=== PATIENT | female | born 1975 | race Caucasian/White ===

== ENCOUNTER → 2020-06-29 17:31 | Outpatient (CLI) | payer OTHER, SELFPAY ==
--- NOTE | ~2020-06-29 | XR_ITS ---
EXAMINATION: XR chest 2V DATE: 06/29/2020 18:16 INDICATION: Pneumonia TECHNIQUE: PA and lateral views of the chest were obtained. COMPARISON: None FINDINGS: Single thin band of linear discoid atelectasis at the lingula. No other airspace opacities, pulmonary edema, pleural effusion or pneumothorax. The cardiomediastinal silhouette is normal. Minimal thoraci c spondylosis. Cholecystectomy clips in the right upper quadrant. IMPRESSION: 1. Minimal lingular discoid atelectasis. No other acute cardiopulmonary disease. Reviewed, dictated and finalized at location A. RENTAL SERVICE ATTENDANT IMPRESSION: 1. Minimal lingular discoid atelectasis. No other acute cardiopulmonary disease .
== END ==
PROVIDERS: PCP Family Medicine; Visit Provider Physician Assistant
DX: J18.9 Pneumonia, unspecified organism (principal)
CPT/HCPCS: 71046

== ENCOUNTER → 2021-08-20 09:15 | Outpatient (CLI) | payer OTHER, SELFPAY ==
--- NOTE | ~2021-08-20 | XR_ITS ---
XR shoulder LT min 2V DATE: 08/20/2021 09:51 INDICATION: Left shoulder pain TECHNIQUE: 4 views COMPARISON: None FINDINGS: A left cervical rib is noted. No fracture or dislocation, periosteal reaction or bone destruction or abnormal soft tissue calcifica tion of the left shoulder. IMPRESSION: Left cervical rib Reviewed, dictated and finalized at location A. ER MACHINE OPERATOR IMPRESSION: Left cervical rib
--- NOTE | ~2021-08-20 | XR_ITS ---
XR knee RT min 4V DATE: 08/20/2021 09:51 INDICATION: Right knee pain TECHNIQUE: [place], [place], PA and lateral views COMPARISON: None FINDINGS: There is mild patellar enthesopathy at the quadriceps tendon insertion site. No fracture or dislocation or joint effusion, periosteal reaction or bone destruction, radiopaque intra-articular l oose body or chondrocalcinosis. IMPRESSION: Mild patellar enthesopathy Reviewed, dictated and finalized at location A. ACE TENDER IMPRESSION: Mild patellar enthesopathy
== END ==
PROVIDERS: PCP Physician Assistant; Visit Provider Physician Assistant
DX: M25.519 Pain in unspecified shoulder (principal); M25.569 Pain in unspecified knee; M76.51 Patellar tendinitis, right knee; Q76.5 Cervical rib
CPT/HCPCS: 73030; 73564

== ENCOUNTER 2021-12-18 10:35 | Emergency (ER) | payer OTHER, SELFPAY ==
[2021-12-18 10:48] VITALS: BP 118/74; PULSE 83; RESP 18; TEMP 36.7; O2SAT 99
--- NOTE | 2021-12-18 11:45 | ED.GENADULT ---
HPI - General Adult General Chief complaint: Skin/Abscess/Foreign Body Stated complaint: Lt Inside Thigh History of Present Illness HPI narrative: Patient is a 46-year-old female who presents to the [facility] via POV for evaluation of skin problem on left inner thigh that began yesterday. Additionally, she reports the area is tender, red, warm, and swelling. She denies using OTC meds for symptoms. Related Data Allergies Allergy/AdvReac Type Severity Reaction Status Date / Time No Known Allergies Allergy Verified 11/19/21 11:50 Review of Systems Review of Systems: Denies injury. Pertinent negatives fever, chills, sweats, malaise, poor p.o. intake, change in appetite, headache, LOC, dizziness, streaking, drainage, numbness, tingling, loss of sensation, foreign body sensation, deformity, sob, chest pain, and heart palpitations/murmurs. PMFSH Past Medical History Medical History Anxiety Gestational diabetes HLD (hyperlipidemia) Hypertension Psoriasis Type 2 diabetes mellitus Surgical History Surgical History H/O section History of cholecystectomy History of tonsillectomy Family History Family History Father Diabetes mellitus Skin cancer Mother High cholesterol Grandparent Carcinoma of colon Social History Social History Smoking status: Never smoker Alcohol intake: current Alcohol use details: rare Substance use: never Substance use type: does not use Gender identity (if verbalized by the patient): Female Spiritual care concerns: No Agree to blood products: Yes Exam Narrative: GENERAL: Well-appearing, well-nourished, and in no acute distress. HEAD: Normocephalic, atraumatic. No facial swelling appreciated. EYES: PERRLA and EOMI. No evidence of erythema, swelling, or drainage. ENT: Nares clear, no rhinorrhea or epistaxis.Mucous membranes moist and pink. Uvula is midline without erythema and swelling. No evidence of obstruction, petechial rash, cobblestoning, lesions, ulcers, erythema, swelling, exudates, peritonsillar abscess, tenting, or drooling. Breath odor and voice normal. NECK: Supple. No Lymphadenopathy or nuchal rigidity appreciated. CHEST: Bilateral lung lundberg are clear to auscultation. No respiratory distress. No evidence of cough or pleuritic cp upon examination. HEART: Regular rate and rhythm. No murmur, gallop, or rub heard. EXTREMITIES: Normal range of motion. No edema. SKIN: Warm, dry. Mild cellulitis noted to medial aspect of left thigh otherwise normal. NEURO: No focal deficits. Alert and oriented x3. SPECIAL OBSERVATIONS: Smiling. Laughing. Course Course Level of Care: Express Care Visit Vital Signs Vital signs: Vital Signs Temperature 98.1 F 12/18/21 10:48 Pulse Rate 83 12/18/21 10:48 Respiratory Rate 18 12/18/21 10:48 Blood Pressure 118/74 12/18/21 10:48 Pulse Oximetry 99 12/18/21 10:48 Oxygen Delivery Room Air 12/18/21 10:48 Temperature 98.1 F 12/18/21 10:48 Pulse Rate 83 12/18/21 10:48 Respiratory Rate 18 12/18/21 10:48 Blood Pressure 118/74 12/18/21 10:48 Pulse Oximetry 99 12/18/21 10:48 Oxygen Delivery Room Air 12/18/21 10:48 reviewed Medical Decision Making Differential Diagnosis Differential Diagnosis: Contact/allergic dermatitis, atopic dermatitis, psoriasis, cellulitis, tinea infection, parasite infection, shingles Medical Records Medical records reviewed: Yes I reviewed the external patient's medical records. Vital Signs Vital Signs: Vital Signs Temperature 98.1 F 12/18/21 10:48 Pulse Rate 83 12/18/21 10:48 Respiratory Rate 18 12/18/21 10:48 Blood Pressure 118/74 12/18/21 10:48 Pulse Oximetry 99 12/18/21 10:48 Oxygen Deli
== END 2021-12-18 11:48 | disposition home or self-care (01) ==
PROVIDERS: Emergency Provider Nurse Practitioner Family; PCP Family Medicine
DX: L03.116 Cellulitis of left lower limb (principal); E78.5 Hyperlipidemia, unspecified; I10 Essential (primary) hypertension; E11.9 Type 2 diabetes mellitus without complications; F41.9 Anxiety disorder, unspecified
CPT/HCPCS: 99213; G0463

== ENCOUNTER 2022-03-30 00:27 | Day surgery (SDC) | payer OTHER, SELFPAY ==
[2022-03-16 08:41] VITALS: BMI 36.1
[2022-03-30 08:07] VITALS: BP 129/84; PULSE 106; RESP 20; TEMP 36; O2SAT 98; BMI 36.2
[2022-03-30] MEDS: LACTATED RINGERS 1,000 ML 150 ML IV CONT (08:18)
[2022-03-30 08:20] LABS: Glucose Point of Care 146 mg/dl (65-105)
--- NOTE | 2022-03-30 08:59 | PM.HPGS ---
History of Present Illness History of Present Illness Consent: Risks, benefits, and alternatives have been discussed and questions answered. Patient agrees to proceed with procedure. Chief complaint: melena Narrative: Samantha Heath is a 46 year old female here for colonoscopy, had self-limited hematochezia, last colonoscopy 4 years ago Review of Systems Constitutional: Constitutional: Denies headache(s) and Denies weakness Eyes: Eyes: Denies blurry vision ENT: Reports Normal hearing present, Denies headache(s) and Denies neck pain Cardiovascular: Cardiovascular: Denies chest pain and Denies dyspnea Respiratory: Respiratory: Denies dyspnea Gastrointestinal: Gastrointestinal: Reports no additional gastrointestinal complaints Genitourinary: Genitourinary: Denies dysuria Musculoskeletal: Musculoskeletal: Denies neck pain Integumentary/Breasts: Skin/Breast: Denies dry skin Neurologic: Reports Normal hearing present, Denies headache(s) and Denies weakness Psychiatric: Psychiatric: Denies anxiety Endocrine: Endocrine: Denies change in body appearance Hematologic/Lymphatic: Hematologic/Lymphatic: Denies easy bleeding Allergic/Immunologic: Allergic/Immunologic: Denies urticaria PMFSH Past Medical History Medical History Allergies Anxiety Blood per rectum Diabetes Gestational diabetes Hematochezia HLD (hyperlipidemia) Hypertension Obesity Psoriasis Type 2 diabetes mellitus Surgical History Surgical History H/O section x2 History of cholecystectomy History of endometrial ablation History of tonsillectomy Family History Family History Father Diabetes mellitus Skin cancer Alcoholism Depression Mother High cholesterol Hypertension Depression Grandparent Carcinoma of colon Alcoholism Cancer Other Alcoholism Heart disease Son Depression Daughter Depression Sibling Depression Social History Social History Smoking status: Never smoker Alcohol intake: current Alcohol use details: rare Substance use: never Substance use type: does not use Living arrangements: other Additional living arrangements comments: With sp 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 Gender identity (if verbalized by the patient): Female Spiritual care concerns: No Agree to blood products: Yes Meds Home Medications and Allergies Home Medications Medication Instructions Recorded Confirmed Type lancets (Accu-Chek Fastclix Lancet #100 ea 04/06/20 03/16/22 Rx Drum) pen needle, diabetic 32 gauge x #100 ea 07/09/21 03/16/22 Rx 5/32 (BD Ultra-Fine Glory Pen Needle) venlafaxine 75 mg capsule,extended See Rx Instructions .Route 07/25/21 03/16/22 Rx release 24 hr .COMPLEX #90 caps insulin glargine 100 unit/mL (3 25 unit (0.25 mL) subcut DAILY #15 08/08/21 03/16/22 Rx mL) subcutaneous pen (Basaglar mL KwikPen U-100 Insulin) blood sugar diagnostic (Accu-Chek #100 ea 08/24/21 03/16/22 Rx Guide test strips) lisinopril 5 mg tablet 5 mg PO DAILY #30 tabs 02/11/22 03/16/22 Rx simvastatin 20 mg tablet 20 mg PO DAILY #90 tabs 03/06/22 03/16/22 Rx diclofenac sodium 75 mg 75 mg PO BID #60 tabs 03/16/22 03/30/22 Rx tablet,delayed release Allergies Allergy/AdvReac Type Severity Reaction Status Date / Time No Known Allergies Allergy Verified 03/30/22 08:06 Vital Signs Vital Signs - 24 hr 03/30/22 08:07 Temperature 96.8 F L Pulse Rate 106 H Respiratory Rate 20 Blood Pressure 129/84 Pulse Oximetry 98 Oxygen Delivery Room Air Exam Const: General: comfortable and no acute distress HENMT: Face/Nose/Sinus: Normal nares present Eyes: G
--- NOTE | 2022-03-30 09:09 | WPDANESEPPF ---
Anes - Initial Pre Proc Eval Procedure: Operation Date: 03/30/22 09:15 Proposed Procedures p Colonoscopy - Hernando Porras MD Date/Time: 03/30/22 09:09 Surgeon: Hernando Porras MD Pre Op Diagnosis: melena Patient Data Age: 46 Gender: F Height: 1.6 m Weight: 92.8 kg Last Vital Signs Temp 96.8 F L 03/30/22 08:07 Pulse 106 H 03/30/22 08:07 Resp 20 03/30/22 08:07 BP 129/84 03/30/22 08:07 Pulse Ox 98 03/30/22 08:07 O2 Del Method Room Air 03/30/22 08:07 Allergies Allergy/AdvReac Type Severity Reaction Status Date / Time No Known Allergies Allergy Verified 03/30/22 08:06 Home Medications Medication Instructions Recorded Confirmed Type lancets (Accu-Chek Fastclix Lancet #100 ea 04/06/20 03/16/22 Rx Drum) pen needle, diabetic 32 gauge x #100 ea 07/09/21 03/16/22 Rx 5/32 (BD Ultra-Fine Glory Pen Needle) venlafaxine 75 mg capsule,extended See Rx Instructions .Route 07/25/21 03/16/22 Rx release 24 hr .COMPLEX #90 caps insulin glargine 100 unit/mL (3 25 unit (0.25 mL) subcut DAILY #15 08/08/21 03/16/22 Rx mL) subcutaneous pen (Basaglar mL KwikPen U-100 Insulin) blood sugar diagnostic (Accu-Chek #100 ea 08/24/21 03/16/22 Rx Guide test strips) lisinopril 5 mg tablet 5 mg PO DAILY #30 tabs 02/11/22 03/16/22 Rx simvastatin 20 mg tablet 20 mg PO DAILY #90 tabs 03/06/22 03/16/22 Rx diclofenac sodium 75 mg 75 mg PO BID #60 tabs 03/16/22 03/30/22 Rx tablet,delayed release Laboratory Tests 03/30/22 08:15 POC Capillary Glucose 146 mg/dl H mg/dl (65-105) Patient hx anesthesia problems: none Family hx anesthesia problems: none Results Review: All pre-operative results and documents have been reviewed as part of the pre-operative evaluation. PMFSH Past Medical History Medical History Allergies Anxiety Blood per rectum Diabetes Gestational diabetes Hematochezia HLD (hyperlipidemia) Hypertension Obesity Psoriasis Type 2 diabetes mellitus Surgical History Surgical History H/O section x2 History of cholecystectomy History of endometrial ablation History of tonsillectomy Family History Family History Father Diabetes mellitus Skin cancer Alcoholism Depression Mother High cholesterol Hypertension Depression Grandparent Carcinoma of colon Alcoholism Cancer Other Alcoholism Heart disease Son Depression Daughter Depression Sibling Depression Social History Social History Smoking status: Never smoker Alcohol intake: current Alcohol use details: rare Substance use: never Substance use type: does not use Living arrangements: other Additional living arrangements comments: With sp 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 Gender identity (if verbalized by the patient): Female Spiritual care concerns: No Agree to blood products: Yes Anes - Eval Final PreProcedure Day of Procedure 03/30/22 09:09 Patient weight: obese Heart: regular rate and rhythm Lungs: clear to auscultation Airway: Mallampati scale class II Neurological: alert and oriented Last oral intake: >/= 8 hours ASA classification: III Emergent: no Anesthetic plan: proceed Anesthesia type and monitoring: general GIVS and standard monitoring Results Review: All pre-operative results and documents have been reviewed as part of the pre-operative evaluation. Informed Consent: The patient's anesthetic plan and its attendant risks and benefits were discussed with the patient/family/POA. Questions were solicited and answers provided to the satisfaction of the patient/family/POA.
[2022-03-30 09:27] VITALS: BP 113/72; PULSE 84; RESP 13; O2SAT 97
[2022-03-30 09:37] VITALS: BP 123/77; PULSE 80; RESP 12; O2SAT 98
[2022-03-30 09:42] LABS: Glucose Point of Care 120 mg/dl (65-105)
[2022-03-30 09:47] VITALS: BP 103/69; PULSE 87; RESP 18; O2SAT 98
== END 2022-03-30 09:57 | disposition home or self-care (01) ==
PROVIDERS: PCP Family Medicine; Visit Provider Internal Medicine Gastroenterology
PROC: 0DJD8ZZ Inspection of Lower Intestinal Tract, Via Natural or Artificial Opening Endoscopic (ICD-10-PCS; CPT 45378; principal; 2022-03-30 09:15)
DX: K92.1 Melena (principal); K64.8 Other hemorrhoids; E11.9 Type 2 diabetes mellitus without complications; E78.5 Hyperlipidemia, unspecified; I10 Essential (primary) hypertension; E66.9 Obesity, unspecified; Z68.36 Body mass index [BMI] 36.0-36.9, adult
CPT/HCPCS: 45378; 82948; J2704; J7120

== ENCOUNTER 2023-09-06 03:25 | Day surgery (SDC) | payer OTHER, SELFPAY ==
[2023-08-28 15:37] VITALS: BMI 29.9
--- NOTE | 2023-09-04 10:08 | SUR.PREOP ---
Patient called regarding upcoming procedure. Reviewed preop instructions, appointment times, procedure prep.
[2023-09-06 08:16] VITALS: BP 92/59; PULSE 115; RESP 18; TEMP 36.1; O2SAT 100
[2023-09-06] MEDS: LACTATED RINGERS 1,000 ML 150 ML IV CONT (08:31)
[2023-09-06 08:32] LABS: Glucose Point of Care 102 mg/dl (65-105)
--- NOTE | 2023-09-06 09:13 | WPDANESEPPF ---
Anes - Initial Pre Proc Eval Procedure: Operation Date: 09/06/23 09:30 Proposed Procedures p Screening Colonoscopy - Hernando Porras MD Date/Time: 09/06/23 09:13 Surgeon: Hernando Porras MD Pre Op Diagnosis: Neoplasm screening Patient Data Age: 47 Gender: F Height: 1.6 m Weight: 76.6 kg Last Vital Signs Temp 97 F L 09/06/23 08:16 Pulse 115 H 09/06/23 08:16 Resp 18 09/06/23 08:16 BP 92/59 L 09/06/23 08:16 Pulse Ox 100 09/06/23 08:16 O2 Del Method Room Air 09/06/23 08:16 Allergies Allergy/AdvReac Type Severity Reaction Status Date / Time No Known Allergies Allergy Verified 09/06/23 08:15 Home Medications Medication Instructions Recorded Confirmed Type pen needle, diabetic 31 gauge x #100 ea 06/09/22 11/25/22 Rx 3/16 (Sure-Fine Pen [place]) pen needle, diabetic 32 gauge x #100 ea 12/18/22 Rx 5/32 (BD Ultra-Fine Glory Pen Needle) blood sugar diagnostic (OneTouch #100 ea 12/19/22 Rx Ultra Test strips) blood-glucose meter (OneTouch #1 ea 12/19/22 Rx Ultra2 Meter) lancets (Accu-Chek Fastclix Lancet #100 ea 12/19/22 Rx Drum) accucheck guide me test strips #200 ea 12/22/22 Rx simvastatin 20 mg tablet See Rx Instructions .Route 02/10/23 08/28/23 Rx .COMPLEX #90 tabs venlafaxine 75 mg capsule,extended See Rx Instructions .Route 03/08/23 08/28/23 Rx release 24 hr .COMPLEX #90 caps lisinopril 5 mg tablet 5 mg PO DAILY #30 tabs 08/22/23 08/28/23 Rx insulin glargine 100 unit/mL (3 18 unit (0.18 mL) subcut DAILY #15 08/28/23 08/28/23 Rx mL) subcutaneous pen (Basaglar mL KwikPen U-100 Insulin) diclofenac sodium 75 mg 75 mg PO BID #60 tabs 08/31/23 Rx tablet,delayed release tirzepatide (weight loss) 10 10 mg (0.5 mL) subcut WEEKLY #2 mL 08/31/23 Rx mg/0.5 mL subcutaneous pen injector (Zepbound) tirzepatide 7.5 mg/0.5 mL See Rx Instructions .Route 08/31/23 Rx subcutaneous pen injector .COMPLEX #2 mL (Mounjaro) hydrochlorothiazide 12.5 mg tablet 12.5 mg PO DAILY #30 tabs 09/06/23 Rx Laboratory Tests 09/06/23 08:28 POC Capillary Glucose 102 mg/dl (65-105) Patient hx anesthesia problems: none Family hx anesthesia problems: none Results Review: All pre-operative results and documents have been reviewed as part of the pre-operative evaluation. [facility] Past Medical History Medical History Allergies Anxiety Blood per rectum Diabetes Gestational diabetes Hematochezia HLD (hyperlipidemia) Hypertension Obesity Psoriasis Type 2 diabetes mellitus Surgical History Surgical History H/O section x2 History of cholecystectomy History of endometrial ablation History of tonsillectomy Family History Family History Father Diabetes mellitus Skin cancer Alcoholism Depression Mother High cholesterol Hypertension Depression Grandparent Carcinoma of colon Alcoholism Cancer Other Alcoholism Heart disease Son Depression Daughter Depression Sibling Depression Social History Social History (System 04/14/23 @ 10:29 by Dakota Huff) Smoking status: Never smoker Second hand tobacco smoke exposure: No Alcohol intake: current Alcohol use details: rare Substance use: never Substance use type: does not use Lack of Transportation: No Lack of Food: Never True Current Housing: I Have Housing Concerned About Future Housing: No Difficulty Paying Gas/Electric Bills: No Difficulty Paying for Meds: No Currently Unemployed: No Education: High School Diploma/GED Difficulty w/ Childcare or Family Care: No Living arrangements: with family Additional living arrangements comments: With sp Occupation/Education: occupation Additional occupation/education comments: [employer]
--- NOTE | 2023-09-06 09:35 | PM.HPGS ---
History of Present Illness History of Present Illness Consent: Risks, benefits, and alternatives have been discussed and questions answered. Patient agrees to proceed with procedure. Chief complaint: Neoplasm screening Narrative: Samantha Heath is a 47 year old female here for screening colonoscopy, last one 2021 Review of Systems Review of Systems: All systems reviewed & are unremarkable except as noted in HPI and below PMFSH Past Medical History Medical History (Updated 09/06/23 @ 09:36 by Hernando Porras MD) Allergies Anxiety Blood per rectum Colon cancer screening Diabetes Gestational diabetes Hematochezia HLD (hyperlipidemia) Hypertension Obesity Psoriasis Type 2 diabetes mellitus Surgical History Surgical History (System 04/14/23 @ 10:29 by Dakota Huff) H/O section x2 History of cholecystectomy History of endometrial ablation History of tonsillectomy Family History Family History Father Diabetes mellitus Skin cancer Alcoholism Depression Mother High cholesterol Hypertension Depression Grandparent Carcinoma of colon Alcoholism Cancer Other Alcoholism Heart disease Son Depression Daughter Depression Sibling Depression Social History Social History (System 04/14/23 @ 10:29 by Dakota Huff) Smoking status: Never smoker Second hand tobacco smoke exposure: No Alcohol intake: current Alcohol use details: rare Substance use: never Substance use type: does not use Lack of Transportation: No Lack of Food: Never True Current Housing: I Have Housing Concerned About Future Housing: No Difficulty Paying Gas/Electric Bills: No Difficulty Paying for Meds: No Currently Unemployed: No Education: High School Diploma/GED Difficulty w/ Childcare or Family Care: No Living arrangements: with family Additional living arrangements comments: With sp Occupation/Education: occupation 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 Gender identity (if verbalized by the patient): Female Spiritual care concerns: No Agree to blood products: Yes Meds Home Medications and Allergies Home Medications Medication Instructions Recorded Confirmed Type pen needle, diabetic 31 gauge x #100 ea 06/09/22 11/25/22 Rx 3/16 (Sure-Fine Pen [place]) pen needle, diabetic 32 gauge x #100 ea 12/18/22 Rx 5/32 (BD Ultra-Fine Glory Pen Needle) blood sugar diagnostic (OneTouch #100 ea 12/19/22 Rx Ultra Test strips) blood-glucose meter (OneTouch #1 ea 12/19/22 Rx Ultra2 Meter) lancets (Accu-Chek Fastclix Lancet #100 ea 12/19/22 Rx Drum) accucheck guide me test strips #200 ea 12/22/22 Rx simvastatin 20 mg tablet See Rx Instructions .Route 02/10/23 08/28/23 Rx .COMPLEX #90 tabs venlafaxine 75 mg capsule,extended See Rx Instructions .Route 03/08/23 08/28/23 Rx release 24 hr .COMPLEX #90 caps lisinopril 5 mg tablet 5 mg PO DAILY #30 tabs 08/22/23 08/28/23 Rx insulin glargine 100 unit/mL (3 18 unit (0.18 mL) subcut DAILY #15 08/28/23 08/28/23 Rx mL) subcutaneous pen (Basaglar mL KwikPen U-100 Insulin) diclofenac sodium 75 mg 75 mg PO BID #60 tabs 08/31/23 Rx tablet,delayed release tirzepatide (weight loss) 10 10 mg (0.5 mL) subcut WEEKLY #2 mL 08/31/23 Rx mg/0.5 mL subcutaneous pen injector (Zepbound) tirzepatide 7.5 mg/0.5 mL See Rx Instructions .Route 08/31/23 Rx subcutaneous pen injector .COMPLEX #2 mL (Julián) hydrochlorothiazide 12.5 mg tablet 12.5 mg PO DAILY #30 tabs 09/06/23 Rx Allergies Allergy/AdvReac Type Severity Reaction Status Date / Time No Known Allergies Allergy Verified 09/06/23 08:15 Vital Signs Vital Signs - 24 hr 09/06/23 08:16 Temperature 97 F L Pulse Rate 115 H Respiratory Rate 18 Blood Pressure 92/59 L Pulse Oximetry 100
[2023-09-06 09:53] VITALS: BP 103/69; PULSE 87; RESP 16; O2SAT 100
[2023-09-06 10:01] LABS: Glucose Point of Care 79 mg/dl (65-105)
[2023-09-06 10:03] VITALS: BP 104/66; PULSE 84; RESP 20; O2SAT 100
[2023-09-06 10:13] VITALS: BP 104/76; PULSE 86; RESP 18; O2SAT 100
== END 2023-09-06 10:18 | disposition home or self-care (01) ==
PROVIDERS: PCP Family Medicine; Visit Provider Internal Medicine Gastroenterology
PROC: 0DJD8ZZ Inspection of Lower Intestinal Tract, Via Natural or Artificial Opening Endoscopic (ICD-10-PCS; CPT 45378; principal; 2023-09-06 09:30)
DX: Z12.11 Encounter for screening for malignant neoplasm of colon (principal); K64.8 Other hemorrhoids; I10 Essential (primary) hypertension; E11.9 Type 2 diabetes mellitus without complications; E78.5 Hyperlipidemia, unspecified; L40.9 Psoriasis, unspecified; F41.9 Anxiety disorder, unspecified; E66.9 Obesity, unspecified; Z68.29 Body mass index [BMI] 29.0-29.9, adult; Z79.4 Long term (current) use of insulin; Z79.85 Long-term (current) use of injectable non-insulin antidiabetic drugs
CPT/HCPCS: 45378; 82948; J2704; J7120

== ENCOUNTER 2024-04-17 08:01 | Emergency (ER) | payer OTHER, SELFPAY ==
--- NOTE | 2024-04-17 08:12 | ED_ITS ---
HPI - URI/Sore Throat General Chief Complaint: Upper Respiratory Infection Stated Complaint: sore throat and clogged ears/ fever Time Seen by Provider: 04/17/24 08:18 History of Present Illness HPI Narrative: 48-year-old female with a history of diabetes and hypertension presented for co mplaint of sore throat, nasal congestion, cough, low grade fever, clogged ears, body aches, and fatigue. Onset 2 days. Denies sob, wheezing, n/v/d. Taking Dayquil and Nyquil. Related Data Home Medications Medication Instructions Recorded Confirmed biotin 10,000 mcg capsule mcg PO 04/17/24 multivit with minerals-iron 18 tablet PO 04/17/24 mg-folic ac 400 mcg-vit K 25 mcg tablet (Adults Multivitamin) Allergies Allergy/AdvReac Type Severity Reaction Status Date / Time tirzepatide [From Mounsalvatorero] AdvReac Severe Nausea and Verified 04/17/24 08:16 Vomiting Review of Systems Review of Systems: ROS per HPI PMFSH Past Medical History Medical History Allergies Anxiety Blood per rectum Colon cancer screening Diabetes Gestational diabetes Hematochezia HLD (hyperlipidemia) Hypertension Obesity Psoriasis Type 2 diabetes mellitus Surgical History Surgical History H/O section x2 History of cholecystectomy History of endometrial ablation History of tonsillectomy Family History Family History Father Diabetes mellitus Skin cancer Alcoholism Depression Mother High cholesterol Hypertension Depression Grandparent Carcinoma of colon Alcoholism Cancer Other Alcoholism Heart disease Son Depression Daughter Depression Sibling Depression Grandparent Carcinoma of colon Social History Social History Smoking status: Never smoker Second hand tobacco smoke exposure: No Alcohol intake: current Alcohol use details: rare Substance use: never Substance use type: does not use Lack of Transportation: No Lack of Food: Never True Current Housing: I Have Housing Concerned About Future Housing: No Difficulty Paying Gas/Electric Bills: No Difficulty Paying for Meds: No Currently Unemployed: No Education: High School Diploma/GED Difficulty w/ Childcare or Family Care: No Living arrangements: with family Additional living arrangements comments: With sp Occupation/Education: occupation Additional occupation/education comments: [employer] Gender identity (if verbalized by the patient): Female Spiritual care concerns: No Agree to blood products: Yes Exam Narrative: GENERAL: mildly Ill-appearing, no acute distress. EYES: conjunctivae clear ENT: Mucous membranes moist. Nasal congestion noted. TMs pearly welch with normal light reflex bilaterally; no tragal tenderness. Oropharynx erythematous without lesions. Tonsils enlarged 1+ without exudate. No drooling, no hoarseness, no trismus, uvula midline. No tripod positioning, hot potato voice, or soft palate swelling. NECK: Supple. No lymphadenopathy CHEST: Clear to auscultation, breath sounds equal. No respiratory distress, speaks in full sentences. HEART: Regular rate and rhythm. No murmur heard. SKIN: Warm, dry, no rash. NEURO: Alert and oriented x3. Course Course Emergency Course: Patient is aware of diagnosis, understands and agrees to treatment plan. Anticipatory guidance given. Patient agrees to follow-up as directed and is aware of reasons to seek care at the emergency department. Portions of this record may have been created with voice recognition software Level of Care: Express Care Visit MDM - URI/Sore Throat MDM Narrative Medical decision making narrative: Neg flu COVID and strep result reviewed with pt. Advised supportive treatments. Rx steroid. Patient is appropriate for outpatient treatment and follow-up with pcp as scheduled in 5 days.. Differential Diagnosis Differential diagnosis: Likely upper respiratory infection, otitis media, sinusitis, viral infection, bronchitis, influenza and pharyngitis Discharge Plan Discharge Clinical Impression: Upper respiratory infection Patient Disposition: Home, Self-Care Condition: Stable Instructions: Antibiotic Form, Upper Respiratory Infection (ED) Additional Instructions: COVID and flu negative. Rapid strep swab was negative today You will be notified in a few days if the culture comes back positive for strep, and appropriate antibiotics will be called in at that time. if symptoms are due to a viral illness, it is not treated with antibiotics. Viral symptoms can be present for up to 10-14 days. Recommendations: Flonase spray and Zyrtec for sinus congestion Cough syrup may cause drowsiness; avoid driving or take it at night time. Tylenol every 8 hours as needed for pain/fever Soft foods, cool liquids, warm tea. Gargle with warm saltwater twice a day. Chloraseptic spray and throat lozenges. Rest and stay hydrated. --Follow up with your PCP as scheduled next week --Go to the ER for any worsening symptoms or concerns Prescriptions: New benzonatate 200 mg capsule 200 mg PO TID PRN (Reason: cough) Qty: 20 0RF prednisone 20 mg tablet 40 mg PO DAILY 4 Days Qty: 8 0RF No Action biotin 10,000 mcg Capsule PO Adults Multivitamin 18 mg iron-400 mcg-25 mcg Tablet PO potassium chloride 10 mEq capsule, extended release 10 meq PO .TWICE WEEKLY Qty: 90 0RF venlafaxine 75 mg capsule,extended release 24hr See Rx Instructions .ROUTE .COMPLEX Qty: 90 2RF Dose Instruction: TAKE 1 CAPSULE BY MOUTH DAILY Rx Instructions: TAKE 1 CAPSULE BY MOUTH DAILY (DME) pen needle, diabetic [Sure-Fine Pen [place]] 31 gauge x 3/16 needle See Rx Instructions .Route Qty: 100 3RF Rx Instructions: As directed weekly (DME) pen needle, diabetic [BD Ultra-Fine Glory Pen Needle] 32 gauge x 5/32 needle See Rx Instructions .ROUTE .MEDSUPPLY Qty: 100 6RF Rx Instructions: daily As directed for insulin injection (DME) lancets [Accu-Chek Fastclix Lancet Drum] [facility] [place] See Rx Instructions .ROUTE .MEDSUPPLY Qty: 100 8RF Rx Instructions: use daily As directed (DME) blood-glucose meter [OneTouch Ultra2 Meter] Mis See Rx Instructions .Route Qty: 1 0RF Rx Instructions: As directed daily to check glucose (DME) accucheck guide me test strips See Rx Instructions .Route .MEDSUPPLY Qty: 200 0RF Rx Instructions: As directed TID simvastatin 20 mg tablet See Rx Instructions .ROUTE .COMPLEX Qty: 90 2RF Dose Instruction: TAKE 1 TABLET BY MOUTH DAILY Rx Instructions: TAKE 1 TABLET BY MOUTH DAILY hydrochlorothiazide 12.5 mg tablet 12.5 mg PO DAILY Qty: 30 4RF (DME) OneTouch Ultra Test Strip See Rx Instructions .Route Qty: 100 3RF Rx Instructions: Use DAILY As directed to monitor glucose insulin glargine [Basaglar KwikPen U-100 Insulin] 100 unit/mL (3 mL) insulin pen 23 unit subcut DAILY Qty: 15 6RF diclofenac sodium 75 mg tablet,delayed release (DR/EC) 75 mg PO BID Qty: 60 1RF lisinopril 5 mg tablet 5 mg PO DAILY Qty: 30 6RF Rx Instructions: at HS Follow-up/Referrals: Blossom Swann MD [Primary Care Provider] - Stand Alone Forms: Work/School Release IP Time of Disposition: 08:43
[2024-04-17 08:19] VITALS: BP 104/72; PULSE 97; RESP 16; TEMP 36.1; O2SAT 99
[2024-04-17 08:28] LABS: EDSTREPNEGPOS1 Negative (Negative)
[2024-04-17 08:34] LABS: EDCOVIDSCREEN Negative (Negative); EDINFLUASCREEN Negative (Negative); EDINFLUBSCREEN Negative (Negative)
[2024-04-17 08:43] VITALS: BP 66/35; PULSE 60; O2SAT 98
[2024-04-17 08:56] VITALS: BP 119/75; O2SAT 98
[2024-04-17 09:52] LABS: Glucose Point of Care 144 mg/dl (65-105)
--- NOTE | 2024-04-17 10:50 | PC.NURSE ---
0843- Pt was getting ready for discharge. Pressed call button and stated she felt as if she was going to pass out. Pt was diaphoretic, cold, clammy and had a significant change in vital signs.
== END 2024-04-17 09:02 | disposition short-term general hospital (02) ==
PROVIDERS: Emergency Provider Nurse Practitioner Family; PCP Family Medicine
DX: J06.9 Acute upper respiratory infection, unspecified (principal); Z20.822 Contact with and (suspected) exposure to COVID-19; E11.9 Type 2 diabetes mellitus without complications; E78.5 Hyperlipidemia, unspecified; I10 Essential (primary) hypertension; E66.9 Obesity, unspecified; Z68.33 Body mass index [BMI] 33.0-33.9, adult
CPT/HCPCS: 82948; 87081; 87426; 87804; 87880; 99213; 99215; G0463

== ENCOUNTER 2024-04-17 09:22 | Emergency (ER) | payer OTHER, SELFPAY ==
[2024-04-17] VITALS (8 sets, daily range): BP systolic 89–141; BP diastolic 52–74; PULSE 86–105; RESP 12–17; TEMP 36.4; O2SAT 97–100
--- NOTE | ~2024-04-17 | XR_ITS ---
EXAMINATION: XR chest 2V DATE: 04/17/2024 09:58 INDICATION: Near syncope. TECHNIQUE: Frontal and lateral views of the chest were obtained. COMPARISON: Chest 2 views 06/29/2020 FINDINGS: There is no pneumonia, pleural effusion, or pneumothorax. The heart size is normal. Surgica l clips in the right upper quadrant are likely from cholecystectomy. IMPRESSION: 1. No acute cardiopulmonary disease. Reviewed, dictated and finalized at location B.
--- NOTE | 2024-04-17 09:26 | ECG_ITS ---
Test Date: 2024-04-17 09:32:25 Measurements Intervals [place] Rate: 92 P: 39 SC: 135 QRS: 40 QRSD: 89 T: 59 QT: 334 QTc: 415 Interpretive Statements SINUS RHYTHM LOW QRS VOLTAGE IN PRECORDIAL LEADS [QRS DEFLECTION < 1.0 mV IN CHEST LEADS] NONSPECIFIC T-WAVE ABNORMALITY No previous ECG available for comparison Electronically Signed On 04-17-2024 14:44:42 CDT by Oracio Glasgow M.D.
[2024-04-17 09:30] LABS: Glucose Point of Care 141 mg/dl (65-105)
[2024-04-17 09:49] LABS: Basophils Absolute Auto 0.1 K/mm3 (0.0-0.1); Basophils Percent Auto 0.4 % (0.2-1.2); Eosinophils Absolute Auto 0.1 K/mm3 (0-0.3); Eosinophils Percent Auto 0.8 % (0-4.4); Hematocrit 42.7 % (37.0-47.0); Hemoglobin 14.2 g/dL (12.0-15.0); Immature Granulocyte Absolute 0.07 K/mm3 (0.00-0.031); Immature Granulocyte Percent A 0.5 % (0-0.5); Lymphocytes Absolute Auto 2.23 K/mm3 (0.9-3.2); Lymphocytes Percent Auto 14.6 % (18.3-44.2); Mean Corpuscular HGB Conc 33.3 g/dl (32-36); Mean Corpuscular Hemoglobin 27.4 pg (26-34); Mean Corpuscular Volume 82.3 fl (80-100); Mean Platelet Volume 10.2 fl (7.4-10.4); Monocytes Absolute Auto 1.3 K/mm3 (0.1-0.6); Monocytes Percent Auto 8.7 % (2.6-8.5); Neutrophils Absolute Auto 11.5 K/mm3 (1.3-6.7); Platelet Count Result 226 k/mm3 (150-375); Red Blood Count 5.19 M/mm3 (4.2-5.4); White Blood Count 15.3 K/mm3 (4.5-10.0)
--- NOTE | 2024-04-17 09:54 | PC.NURSE ---
Spoke with pts and gave update on pts condition and status.
[2024-04-17 10:02] LABS: Alanine Aminotransferase 45 U/L (6-35); Albumin Level 4.5 g/dL (3.5-5.1); Alkaline Phosphatase 90 U/L (38-126); Anion Gap 10 mmol/L (4-12); Aspartate Amino Transferase 33 U/L (14-36); Bilirubin,Total 0.6 mg/dL (0.2-1.3); Blood Urea Nitrogen 16 mg/dL (7-17); Calcium 9.7 mg/dL (8.4-10.2); Carbon Dioxide 29 mmol/L (22-30); Chloride 100 mmol/L (98-107); Estimated CRCL calculation 100 ml/min; Estimated Glomerular Filt Rate > 60; Glucose 136 mg/dL (65-110); Potassium 3.3 mmol/L (3.4-5.0); Sodium 139 mmol/L (137-145)
[2024-04-17 10:28] LABS: Add Urine Microscopic? YES; Appearance Urine Cloudy (Clear); Bacteria Urine 1+ /hpf; Bilirubin Urine 1+ (Negative); Blood Urine Negative (Negative); Color Urine Dark Yellow (Yellow); Glucose Urine UA Negative (Negative); Ketones Urine Trace mg/dL (Negative); Leukocyte Esterase Ur 1+ LEU/UL (Negative); Need Manual Microscopic Reviewed; Nitrate Urine Negative (Negative); Non Pathogenic Casts 0-2; Protein Urine 1+ mg/dL (Negative); Specific Grav Ur 1.034 (1.001-1.035); Squamous Epithelial Cell Urine Moderate /hpf (Few); Transitional Epi Cells Urine Rare /hpf (None Seen); WBC Urine 0-5 /hpf (0-3); pH Urine 5.5 (5.0-9.0)
[2024-04-17 10:29] LABS: RBC Urine 0-2 /hpf (0-2)
[2024-04-17 11:45] LABS: Strep Group A RT-PCR NOT DETECTED (Negative)
[2024-04-17 11:56] LABS: Influenza A QL RT-PCR Negative (Negative); Influenza B QL RT-PCR Negative (Negative); RSV RNA, RT-PCR Negative (Negative); SARS-CoV-2 RNA PCR Negative (Negative)
[2024-04-17] MEDS: SODIUM CHLORIDE 0.9% IV 1,000 ML 999 ML IV CONT (11:59)
--- NOTE | 2024-04-17 12:02 | ED.GENADULT ---
HPI - General Adult General Chief complaint: Weakness Stated complaint: weakness Time Seen by Provider: 04/17/24 11:03 History of Present Illness HPI narrative: 48-year-old female presented to the emergency department for having a near syncopal episode at the urgent care. Patient began feeling ill on Monday after visiting her daughter and [place]. She states that the daughter had similar symptoms. When patient was at the doctor's office today she is being discharged home with a viral illness when she had a near syncopal episode. Patient states she felt diaphoretic and flushed but had no chest pain or shortness of breath. Patient states she did feel better after resting with a cool washcloth on her chest. Patient denies any feelings of near-syncope now. Patient reports that over last few days she has not had much to eat or drink. Patient does suspect she is dehydrated. Related Data Home Medications Medication Instructions Recorded Confirmed biotin 10,000 mcg capsule 10,000 mcg PO DIRECTED 04/17/24 04/17/24 multivit with minerals-iron 18 1 tablet PO DIRECTED 04/17/24 04/17/24 mg-folic ac 400 mcg-vit K 25 mcg tablet (Adults Multivitamin) simvastatin 20 mg tablet 20 mg DIRECTED 04/17/24 04/17/24 venlafaxine 75 mg capsule,extended 75 mg DIRECTED 04/17/24 04/17/24 release 24 hr Allergies Allergy/AdvReac Type Severity Reaction Status Date / Time tirzepatide [From Julián] AdvReac Severe Nausea and Verified 04/17/24 09:28 Vomiting Review of Systems Review of Systems: All systems reviewed & are unremarkable except as noted in HPI and below PMFSH Past Medical History Medical History Allergies Anxiety Blood per rectum Colon cancer screening Diabetes Gestational diabetes Hematochezia HLD (hyperlipidemia) Hypertension Obesity Psoriasis Type 2 diabetes mellitus Surgical History Surgical History H/O section x2 History of cholecystectomy History of endometrial ablation History of tonsillectomy Family History Family History Father Diabetes mellitus Skin cancer Alcoholism Depression Mother High cholesterol Hypertension Depression Grandparent Carcinoma of colon Alcoholism Cancer Other Alcoholism Heart disease Son Depression Daughter Depression Sibling Depression Grandparent Carcinoma of colon Social History Social History Smoking status: Never smoker Second hand tobacco smoke exposure: No Alcohol intake: current Alcohol use details: rare Substance use: never Substance use type: does not use Lack of Transportation: No Lack of Food: Never True Current Housing: I Have Housing Concerned About Future Housing: No Difficulty Paying Gas/Electric Bills: No Difficulty Paying for Meds: No Currently Unemployed: No Education: High School Diploma/GED Difficulty w/ Childcare or Family Care: No Living arrangements: with family Additional living arrangements comments: With sp Occupation/Education: occupation Additional occupation/education comments: [employer]- [employer] Gender identity (if verbalized by the patient): Female Spiritual care concerns: No Agree to blood products: Yes Exam Narrative: APPEARANCE: Well appearing, no pain, no distress, well-nourished. HEAD: normocephalic, atraumatic. EYES: PERRLA/EOMI, conjunctivae clear. NOSE: Normal no drainage EARS:TMS clear with good light reflex. THROAT: Pharynx clear, no exudate. NECK: Supple. No adenopathy, no masses. RESPIRATORY: Airway patent, respirations nonlabored. Clear to auscultation bilaterally, no rales, rhonchi, wheezing. CARDIOVASCULAR: Regular rate and rhythm without murmurs rubs or gallops. ABDOMINAL: Soft, nontender, nondistended, normal bowel sounds MUSCULOSKELETAL: Moves all extremities. Strength/ROM intact, No edema, No calf tenderness. NEURO: Alert. Cranial nerves II through XII intact. Grossly intact SKIN: Warm, dry. Normal Color Course Vital Signs Vital signs: Vital Signs Pulse Rate 95 04/17/24 09:14 Temperature 97.5 F L 04/17/24 09:22 Pulse Rate 89 04/17/24 14:41 Respiratory Rate 14 04/17/24 14:41 Blood Pressure 113/72 04/17/24 14:41 Pulse Oximetry 97 04/17/24 14:41 Oxygen Delivery Room Air 04/17/24 09:22 Medical Decision Making MDM Narrative Medical decision making narrative: 48-year-old female presents emergency department for evaluation after having a near syncopal episode. Patient did feel improved in the emergency department. Patient suspects that she did have a vasovagal episode. Patient is afebrile but does have a leukocytosis of 15.3 and a stable hemoglobin of 14.2. No significant electrolyte abnormalities on the patient's CMP UA was negative for infection. Patient was negative for influenza RSV COVID and strep. Chest x-ray showed no acute cardiopulmonary abnormality. EKG showed normal sinus rhythm. Patient did feel improved with treatment. Patient was comfortable plan for discharge and close follow-up. Patient was able to ambulate in the emergency department it did feel improved. Differential Diagnosis Differential Diagnosis: Syncope, near syncope, vasovagal, orthostatic hypotension, dehydration, viral etiology Vital Signs Vital Signs: Vital Signs Pulse Rate 95 04/17/24 09:14 Temperature 97.5 F L 04/17/24 09:22 Pulse Rate 89 04/17/24 14:41 Respiratory Rate 14 04/17/24 14:41 Blood Pressure 113/72 04/17/24 14:41 Pulse Oximetry 97 04/17/24 14:41 Oxygen Delivery Room Air 04/17/24 09:22 Lab Data Lab results reviewed: Yes I reviewed the patient's lab results. 04/17/24 09:40 04/17/24 09:40 Labs: Lab Results 04/17/24 04/17/24 04/17/24 Range/Units 09:27 09:40 10:01 WBC 15.3 H (4.5-10.0) K/mm3 RBC 5.19 (4.2-5.4) M/mm3 Hgb 14.2 (12.0-15.0) g/dL Hct 42.7 (37.0-47.0) % MCV 82.3 (80-100) fl MCH 27.4 (26-34) pg MCHC 33.3 (32-36) g/dl RDW 13.0 (11.5-14.5) % Plt Count 226 (150-375) k/mm3 MPV 10.2 (7.4-10.4) fl Immature Gran % (Auto) 0.5 (0-0.5) % Neut % (Auto) 75.0 H (45.5-73.1) % Lymph % (Auto) 14.6 L (18.3-44.2) % Jenkins % (Auto) 8.7 H (2.6-8.5) % Eos % (Auto) 0.8 (0-4.4) % Baso % (Auto) 0.4 (0.2-1.2) % Lymph # (Auto) 2.23 (0.9-3.2) K/mm3 Jenkins # (Auto) 1.3 H (0.1-0.6) K/mm3 Eos # (Auto) 0.1 (0-0.3) K/mm3 Baso # (Auto) 0.1 (0.0-0.1) K/mm3 Abs Immat Gran (auto) 0.07 H (0.00-0.031) K/mm3 Absolute Neuts (auto) 11.5 H (1.3-6.7) K/mm3 Absolute Nucleated RBC 0.000 (0.0-0.012) K/mm3 Nucleated RBC % 0.0 (0.0-0.2) % Sodium 139 (137-145) mmol/L Potassium 3.3 L (3.4-5.0) mmol/L Chloride 100 (98-107) mmol/L Carbon Dioxide 29 (22-30) mmol/L Anion Gap 10 (4-12) mmol/L BUN 16 (7-17) mg/dL Creatinine 0.60 L (0.7-1.0) mg/dL Estim Creat Clear Calc 100 ml/min Estimated GFR > 60 (59 - ) Glucose 136 H (65-110) mg/dL POC Capillary Glucose 141 H (65-105) mg/dl Calcium 9.7 (8.4-10.2) mg/dL Total Bilirubin 0.6 (0.2-1.3) mg/dL AST 33 (14-36) U/L ALT 45 H (6-35) U/L Alkaline Phosphatase 90 (38-126) U/L Total Protein 8.0 (6.3-8.2) g/dL Albumin 4.5 (3.5-5.1) g/dL Urine Color Dark yellow (Yellow) Urine Appearance Cloudy H (Clear) Urine pH 5.5 (5.0-9.0) Ur Specific [place] 1.034 (1.001-1.035) Urine Protein 1+ H (Negative) mg/dL Urine Glucose (UA) Negative (Negative) mg/dL Urine Ketones Trace H (Negative) mg/dL Ur Blood (Man) Negative (Negative) Urine Nitrate Negative (Negative) Urine Bilirubin 1+ H (Negative) Urine Urobilinogen 1.0 (<2.0) mg/dL Add Ur Microanalysis Reviewed Leukocyte Esterase Rfl 1+ H (Negative) STEVEN/UL Urine RBC 0-2 (0-2) /hpf Urine WBC 0-5 (0-3) /hpf Ur Squamous Epith Cells Moderate (Few) /hpf Ur Transition Epith Cell Rare (None Seen) /hpf Urine Bacteria 1+ H /hpf Urine Casts 0-2 Influenza A (RT-PCR) (Negative) Influenza B (RT-PCR) (Negative) RSV (RT-PCR) (Negative) SARS-CoV-2 RNA (RT-PCR) (Negative) Group A Strep (PCR) (Negative) 04/17/24 Range/Units 11:10 WBC (4.5-10.0) K/mm3 RBC (4.2-5.4) M/mm3 Hgb (12.0-15.0) g/dL Hct (37.0-47.0) % MCV (80-100) fl MCH (26-34) pg MCHC (32-36) g/dl RDW (11.5-14.5) % Plt Count (150-375) k/mm3 MPV (7.4-10.4) fl Immature Gran % (Auto) (0-0.5) % Neut % (Auto) (45.5-73.1) % Lymph % (Auto) (18.3-44.2) % Jenkins % (Auto) (2.6-8.5) % Eos % (Auto) (0-4.4) % Baso % (Auto) (0.2-1.2) % Lymph # (Auto) (0.9-3.2) K/mm3 Jenkins # (Auto) (0.1-0.6) K/mm3 Eos # (Auto) (0-0.3) K/mm3 Baso # (Auto) (0.0-0.1) K/mm3 Abs Immat Gran (auto) (0.00-0.031) K/mm3 Absolute Neuts (auto) (1.3-6.7) K/mm3 Absolute Nucleated RBC (0.0-0.012) K/mm3 Nucleated RBC % (0.0-0.2) % Sodium (137-145) mmol/L Potassium (3.4-5.0) mmol/L Chloride (98-107) mmol/L Carbon Dioxide (22-30) mmol/L Anion Gap (4-12) mmol/L BUN (7-17) mg/dL Creatinine (0.7-1.0) mg/dL Estim Creat Clear Calc ml/min Estimated GFR (59 - ) Glucose (65-110) mg/dL POC Capillary Glucose (65-105) mg/dl Calcium (8.4-10.2) mg/dL Total Bilirubin (0.2-1.3) mg/dL AST (14-36) U/L ALT (6-35) U/L Alkaline Phosphatase (38-126) U/L Total Protein (6.3-8.2) g/dL Albumin (3.5-5.1) g/dL Urine Color (Yellow) Urine Appearance (Clear) Urine pH (5.0-9.0) Ur Specific [place] (1.001-1.035) Urine Protein (Negative) mg/dL Urine Glucose (UA) (Negative) mg/dL Urine Ketones (Negative) mg/dL Ur Blood (Man) (Negative) Urine Nitrate (Negative) Urine Bilirubin (Negative) Urine Urobilinogen (<2.0) mg/dL Add Ur Microanalysis Leukocyte Esterase Rfl (Negative) STEVEN/UL Urine RBC (0-2) /hpf Urine WBC (0-3) /hpf Ur Squamous Epith Cells (Few) /hpf Ur Transition Epith Cell (None Seen) /hpf Urine Bacteria /hpf Urine Casts Influenza A (RT-PCR) Negative (Negative) Influenza B (RT-PCR) Negative (Negative) RSV (RT-PCR) Negative (Negative) SARS-CoV-2 RNA (RT-PCR) Negative (Negative) Group A Strep (PCR) Not detected (Negative) Imaging Data Radiologist's impression: Impressions Chest X-Ray 04/17/24 09:59 IMPRESSION: 1. No acute cardiopulmonary disease. ECG Data EKG #1: EKG Interpretation: normal rate, sinus rhythm, no ectopy, non-specific ST changes, normal QRS and normal QT Discharge Plan Discharge Clinical Impression: Near syncope Patient Disposition: Home, Self-Care Condition: Stable Instructions: Antibiotic Form, Near Syncope (ED) Additional Instructions: Zofran as needed for nausea control. Drink plenty of fluids. Have close follow-up with your primary care physician. if you have any worsening symptoms then please call or return to the emergency department. Prescriptions: No Action biotin 10,000 mcg Capsule 10,000 mcg PO DIRECTED Adults Multivitamin 18 mg iron-400 mcg-25 mcg Tablet 1 tablet PO DIRECTED benzonatate 200 mg capsule 200 mg PO TID PRN (Reason: cough) Qty: 20 0RF prednisone 20 mg tablet 40 mg PO DAILY 4 Days Qty: 8 0RF venlafaxine 75 mg capsule,extended release 24hr 75 mg DIRECTED Rx Instructions: TAKE 1 CAPSULE BY MOUTH DAILY simvastatin 20 mg tablet 20 mg DIRECTED potassium chloride 10 mEq capsule, extended release 10 meq PO .TWICE WEEKLY Qty: 90 0RF (DME) pen needle, diabetic [Sure-Fine Pen [place]] 31 gauge x 3/16 needle See Rx Instructions .Route Qty: 100 3RF Rx Instructions: As directed weekly (DME) pen needle, diabetic [BD Ultra-Fine [place]ory Pen Needle] 32 gauge x 5/32 needle See Rx Instructions .ROUTE .MEDSUPPLY Qty: 100 6RF Rx Instructions: daily As directed for insulin injection (DME) lancets [Accu-Chek Fastclix Lancet Drum] Misc See Rx Instructions .ROUTE .MEDSUPPLY Qty: 100 8RF Rx Instructions: use daily As directed (DME) blood-glucose meter [OneTouch Ultra2 Meter] Misc See Rx Instructions .Route Qty: 1 0RF Rx Instructions: As directed daily to check glucose (DME) accucheck guide me test strips See Rx Instructions .Route .MEDSUPPLY Qty: 200 0RF Rx Instructions: As directed TID hydrochlorothiazide 12.5 mg tablet 12.5 mg PO DAILY Qty: 30 4RF (DME) OneTouch Ultra Test Strip See Rx Instructions .Route Qty: 100 3RF Rx Instructions: Use DAILY As directed to monitor glucose insulin glargine [Basaglar KwikPen U-100 Insulin] 100 unit/mL (3 mL) insulin pen 23 unit subcut DAILY Qty: 15 6RF diclofenac sodium 75 mg tablet,delayed release (DR/EC) 75 mg PO BID Qty: 60 1RF lisinopril 5 mg tablet 5 mg PO DAILY Qty: 30 6RF Rx Instructions: at HS Follow-up/Referrals: Blossom Swann MD [Primary Care Provider] -
== END 2024-04-17 14:43 | disposition home or self-care (01) ==
PROVIDERS: Emergency Provider Emergency Medicine; PCP Family Medicine
DX: R55 Syncope and collapse (principal); E11.9 Type 2 diabetes mellitus without complications; E78.5 Hyperlipidemia, unspecified; E66.9 Obesity, unspecified; Z68.33 Body mass index [BMI] 33.0-33.9, adult; I10 Essential (primary) hypertension; Z20.822 Contact with and (suspected) exposure to COVID-19
CPT/HCPCS: 36415; 71046; 80053; 81001; 82948; 85025; 87081; 87086; 87426; 87637; 87651; 87804; 87880; 93005; 96360; 99284; J7030

== ENCOUNTER 2024-10-01 10:37 | Outpatient (CLI) | payer OTHER, SELFPAY ==
--- NOTE | ~2024-10-01 | MR_ITS ---
MRI of the right shoulder Technique: Axial proton-density fat-sat images, coronal proton density fat-sat and T2 fat-sat images, and sagittal T1-weighted and T2 fat-sat images were acquired. Clinical History: Impingement syndrome Findings: There is moderate AC joint degenerative change abutting productive change of the distal cla vicle and mild reactive marrow edema in the distal clavicle. Minimal subacromial spur. Coracoclavicul ar, coracoacromial, and coracohumeral ligaments are intact. There is mild supraspinatus and infraspinatus tendinosis. No partial or full-thickness tear. Subscapu thony tendon intact with mild tendinosis. Tendon of long head of the biceps is intact. There is probable degenerative attenuation of the superior labrum without definite detached, discrete labral tear. Inferior glenohumeral ligament is intact. No degenerative change or effusion of the glenohumeral join t. There is minimal fluid in the subacromial/subdeltoid bursa. No muscle atrophy or edema. Impression: Mild rotator cuff tendinosis. No partial or full-thickness tear. Moderate AC joint degenerative change. Degenerative attenuation of the superior labrum without definite discrete tear. Minimal subacromial/subdeltoid bursitis. Reviewed, dictated and finalized at location . Impression: Mild rotator cuff tendinosis. No partial or full-thickness tear. Moderate AC joint degenerative change. Degenerative attenuation of the superior labrum without definite discrete tear. Minimal subacromial/subdeltoid bursitis.
== END 2024-10-01 10:38 | disposition home or self-care (01) ==
LOC: MICIMG 10:37
PROVIDERS: PCP Family Medicine; Visit Provider Nurse Practitioner Family
DX: M75.31 Calcific tendinitis of right shoulder (principal); M19.011 Primary osteoarthritis, right shoulder; M24.859 Other specific joint derangements of unspecified hip, not elsewhere classified; M75.41 Impingement syndrome of right shoulder
CPT/HCPCS: 73221

== ENCOUNTER 2025-06-06 09:05 | Outpatient (CLI) | payer OTHER, SELFPAY ==
--- NOTE | ~2025-06-06 | US_ITS ---
US right upper quadrant Indication: R74.8 - Abnormal levels of other serum enzymes Comparison: None Technique: Grady-scale and color Doppler images were obtained. Findings: LIVER: Mild increased echogenicity of the liver. . GALLBLADDER/BILIARY: Post cholecystectomy. CBD 5.3 mm. [place]den sign negative. PANCREAS: Unremarkable. Right Kidney: The right kidney was not imaged. Impression: Mild hepatic steatosis Reviewed, dictated and finalized at location P. 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
== END 2025-06-06 09:06 | disposition home or self-care (01) ==
LOC: MICIMG 09:05
PROVIDERS: PCP Student in an Organized Health Care Education/Training Program; Visit Provider Student in an Organized Health Care Education/Training Program
DX: K76.0 Fatty (change of) liver, not elsewhere classified (principal); R74.8 Abnormal levels of other serum enzymes
CPT/HCPCS: 76705